=== PATIENT | male | born 1950 | race Caucasian/White ===

== ENCOUNTER 2020-07-15 13:24 | Observation (INO) | payer MEDICARE ==
[~2020-07-15] VITALS: Ht 188 cm; Wt 83.9 kg
[2020-07-15 15:12] LABS: BASOPHILS % (AUTO) 1 % (0-1); EOSINOPHILS % (AUTO) 1 % (1-7); LYMPHOCYTES % (AUTO) 22 % (22-44); MD NO; MEAN CORPUSCULAR HEMOGLOBIN 31.3 pg (27.5-34.5); MEAN CORPUSCULAR HGB CONC 34.4 g/dL (33.2-36.2); MEAN PLATELET VOLUME 7.3 fL (7.4-10.4); MONOCYTES % (AUTO) 9 % (2-9); NEUTROPHILS % (AUTO) 67 % (42-75); PLATELET COUNT 202 x10^3/uL (130-400); RED BLOOD COUNT 4.62 x10^6/uL (4.38-5.82); RED CELL DISTRIBUTION WIDTH 14.5 % (9.4-14.8)
[2020-07-15] MEDS ORDERED: FENTANYL PF 100 MCG/2ML ONE (15:12)
[2020-07-15] MEDS ORDERED: MIDAZOLAM 1 MG/ML, 5ML ONE (15:12)
[2020-07-15] MEDS ORDERED: VERAPAMIL 2.5 MG/ML, 2ML ONE (15:13)
[2020-07-15] MEDS ORDERED: BIVALIRUDIN 250 MG ONE (15:13)
[2020-07-15] MEDS ORDERED: HEPARIN 1,000 UNITS/ML, 10ML ONE (15:13)
[2020-07-15] MEDS ORDERED: LIDOCAINE-MPF 1%, 5ML ONE (15:13)
[2020-07-15] MEDS ORDERED: ASCO500T7 PO (15:19)
[2020-07-15] MEDS ORDERED: ROSU20TA2 PO (15:19)
[2020-07-15] MEDS ORDERED: ASPI-1026 PO (15:19)
[2020-07-15] MEDS ORDERED: ELVI1TAB3 PO (15:19)
[2020-07-15] MEDS ORDERED: OMEG1CAP34 PO (15:19)
[2020-07-15] MEDS ORDERED: SILD100T PO (15:19)
[2020-07-15] MEDS ORDERED: GABA600T7 PO (15:20)
[2020-07-15] MEDS ORDERED: DARU800T2 PO (15:20)
[2020-07-15 15:21] VITALS: BP 130/62
[2020-07-15 15:21] LABS: ANION GAP 6 mmol/L (5-15); CALCIUM 9.4 mg/dL (8.5-10.1); CHLORIDE 111 mmol/L (98-107)
[2020-07-15 20:45] VITALS: BP 148/81
[2020-07-16 03:09] VITALS: BP 134/80
[2020-07-16 08:02] VITALS: BP 134/72
[2020-07-16 12:15] VITALS: BP 156/86
== END 2020-07-16 14:39 | disposition home or self-care (01) ==
LOC: CACL 13:24 → 5SO 17:48 → CACL 20:02 → 5SO 20:03 → INTOOBSV 20:03 → 5SO 20:17 → DCLOUNGE 07-16 14:32
PROVIDERS: ADMIT Internal Medicine Cardiovascular Disease; ATTEND Internal Medicine Cardiovascular Disease
DX: I25.10 Atherosclerotic heart disease of native coronary artery without angina pectoris (principal); I65.21 Occlusion and stenosis of right carotid artery; I12.9 Hypertensive chronic kidney disease with stage 1 through stage 4 chronic kidney disease, or unspecified chronic kidney disease; E11.22 Type 2 diabetes mellitus with diabetic chronic kidney disease; N18.30 Chronic kidney disease, stage 3 unspecified; R00.1 Bradycardia, unspecified; E11.65 Type 2 diabetes mellitus with hyperglycemia; C19 Malignant neoplasm of rectosigmoid junction; B20 Human immunodeficiency virus [HIV] disease; K21.9 Gastro-esophageal reflux disease without esophagitis; E78.2 Mixed hyperlipidemia; D72.829 Elevated white blood cell count, unspecified; I82.409 Acute embolism and thrombosis of unspecified deep veins of unspecified lower extremity; F12.10 Cannabis abuse, uncomplicated; Z79.899 Other long term (current) drug therapy
CPT/HCPCS: 36415; 80048; 85025; 93458; 99156; C1769; C1894; G0378; J1644; J2250; J3010; Q9967; J0583

== ENCOUNTER 2020-11-07 10:41 | Day surgery (SDC) | payer MEDICARE, MEDICAID ==
[~2020-11-07] VITALS: Ht 188 cm; Wt 84.1 kg
[~2020-11-07 10:41] MED LIST: ASCO500T7 PO; ASPI-1026 PO; CEFAZOLIN 1,000 MG ONE; CEFAZOLIN PMX 1GM/50ML 50 ML ONE; DARU800T2 PO; ELVI1TAB3 PO; FENTANYL PF 100 MCG/2ML ONE; GABA600T7 PO; LIDOCAINE 1%, 20ML ONE; MIDAZOLAM 1 MG/ML, 5ML ONE; OMEG1CAP34 PO; ROSU20TA2 PO; SILD100T PO
[2020-11-07] MEDS ORDERED: SODIUM CHLORIDE 0.9% 1,000 ML IV SCH (11:00)
[2020-11-07 11:24] VITALS: BP 135/67
[2020-11-07] MEDS ORDERED: PLEASE ENTER HEIGHT AND WEIGHT MC SCH (11:30)
[2020-11-07 11:49] LABS: BASOPHILS % (AUTO) 1 % (0-1); EOSINOPHILS % (AUTO) 1 % (1-7); LYMPHOCYTES % (AUTO) 17 % (22-44); MEAN CORPUSCULAR HEMOGLOBIN 30.4 pg (27.5-34.5); MEAN CORPUSCULAR HGB CONC 35.1 g/dL (33.2-36.2); MEAN PLATELET VOLUME 7.3 fL (7.4-10.4); MONOCYTES % (AUTO) 10 % (2-9); NEUTROPHILS % (AUTO) 72 % (42-75); PLATELET COUNT 247 x10^3/uL (130-400); RED BLOOD COUNT 4.81 x10^6/uL (4.38-5.82); RED CELL DISTRIBUTION WIDTH 16.1 % (9.4-14.8)
[2020-11-07] MEDS ORDERED: BLOOD PRESSURE PILL PO (11:51)
[2020-11-07 11:56] LABS: MD NO
[2020-11-07 11:59] LABS: ANION GAP 6 mmol/L (5-15); CALCIUM 9.6 mg/dL (8.5-10.1); CHLORIDE 105 mmol/L (98-107); INTERNATIONAL NORMALIZED RATIO 0.99 (0.93-1.1); PROTHROMBIN TIME 10.6 Seconds (9.6-11.5)
[2020-11-07 12:00] LABS: CREATININE 1.23 mg/dL (0.7-1.3)
== END 2020-11-07 12:55 | disposition home or self-care (01) ==
LOC: CACL 10:41
PROVIDERS: ATTEND Internal Medicine Cardiovascular Disease
DX: I44.30 Unspecified atrioventricular block (principal); Z53.8 Procedure and treatment not carried out for other reasons; F12.10 Cannabis abuse, uncomplicated; Z79.01 Long term (current) use of anticoagulants; Z79.899 Other long term (current) drug therapy
CPT/HCPCS: 36415; 71046; 80048; 85025; 85610; 93005; J0690; J2250; J3010